=== PATIENT | female | born 1975 | race Two or more races ===

== ENCOUNTER 2024-01-23 06:55 | Day surgery (SDC) | payer BC, SELFPAY ==
[2024-01-20 08:55] LABS: HCG Qualitative,Urine Negative
[2024-01-20 14:56] VITALS: BMI 32.6
[2024-01-23] VITALS (8 sets, daily range): BP systolic 106–143; BP diastolic 72–87; PULSE 70–93; RESP 15–19; TEMP 36.8; O2SAT 98–100; BMI 32.6
[2024-01-23] MEDS: DiphenhydrAMINE INJ 50 MG/ML VIAL 25 MG IV (08:04)
[2024-01-23] MEDS: MIDAZOLAM INJ 1 MG/ML VIAL 2 ML (ASD USE ONLY) 2 MG IV (08:05)
[2024-01-23] MEDS: fentaNYL CIT INJ 50 mCg/ML AMP 2ML (ASD USE ONLY) IV (08:06)
== END 2024-01-23 09:10 | disposition home or self-care (01) ==
PROVIDERS: PCP Nurse Practitioner Family; Referring Provider Surgery; Visit Provider Surgery
PROC: 0DBE8ZX Excision of Large Intestine, Via Natural or Artificial Opening Endoscopic, Diagnostic (ICD-10-PCS; CPT 45380; principal; 2024-01-23 08:00)
DX: K64.0 First degree hemorrhoids (principal); K57.31 Diverticulosis of large intestine without perforation or abscess with bleeding
CPT/HCPCS: 45378; 81025; J1200; J2250; J3010